=== PATIENT | female | born 1995 | race Caucasian/White ===

== ENCOUNTER 2025-01-08 10:57 | Observation (INO) ==
[2025-01-08] MEDS ORDERED: IOPAMIDOL 100 ML BOTTLE IV ONE (10:58)
[2025-01-08] MEDS: PANTOPRAZOLE 40 MG VIAL IV ONE (11:32)
[2025-01-08] MEDS: MAG HYDROX/AL HYDROX/SIMETH 30 ML ORAL.SUSP PO ONE (11:32)
[2025-01-08] MEDS: SUCRALFATE 1 GM TABLET PO ONE (11:39)
[2025-01-08] MEDS: SUCRALFATE 1 GM/10 ML ORAL.SUSP PO ONE (11:50)
[2025-01-08 12:39] LABS: Basophils # (Auto) 0.05 K/mcL (0.00-0.30); Basophils % (Auto) 0.6 % (0.0-2.0); Eosinophils # (Auto) 0.04 K/mcL (0.00-0.70); Eosinophils % (Auto) 0.4 % (0.0-7.0); Hematocrit 44.0 % (34.1-44.9); Hemoglobin 15.2 g/dL (11.2-15.7); Lymphocytes # (Auto) 1.45 K/mcL (1.50-4.80); Lymphocytes % (Auto) 16.1 % (15.5-49.0); Mean Corpuscular HGB Conc 34.5 g/dL (31.0-36.0); Monocytes # (Auto) 0.38 K/mcL (0.10-0.90); Monocytes % (Auto) 4.2 % (1.0-12.0); Neutrophils % (Auto) 78.4 % (38.0-78.0); Platelet Count 311 K/mcL (140-440); RBC 5.23 M/mcL (3.59-5.38); WBC 9.0 K/mcL (4.5-11.0)
[2025-01-08 12:47] LABS: Bilirubin,Urine Negative (Negative); Color,Urine YELLOW; Glucose,Urine (UA) Negative (Negative); Ketones,Urine Negative (Negative); Leukocyte Esterase,Urine Negative /uL (Negative); PH,Urine 6.0 (5.0-9.0); Protein,Urine Negative (Negative); Specific Gravity,Urine 1.006 (1.000-1.035); Urobilinogen,Urine 2.0 mg/dL
[2025-01-08 12:58] LABS: ALT/SGPT 269 U/L (<40); AST/SGOT 391 U/L (<32); Albumin 4.7 gm/dL (3.2-5.2); Albumin/Globulin Ratio 1.7 (1.0-2.3); Alkaline Phosphatase 291 U/L (39-117); Anion Gap 14.0 (8.0-16.0); Bilirubin,Total 0.8 mg/dL (0.1-1.0); Blood Urea Nitrogen 11 mg/dL (6-20); Calcium 10.0 mg/dL (8.6-10.4); Carbon Dioxide 26 mmol/L (22-30); Chloride 97 mmol/L (96-108); Globulin 2.8 gm/dL (2.2-3.7); Glucose 77 mg/dL (70-105); Potassium 3.6 mmol/L (3.3-5.1); Sodium 137 mmol/L (133-145)
[2025-01-08] MEDS: 0.9 % SODIUM CHLORIDE 1,000 ML IV ONE (13:33)
[2025-01-08] MEDS: PIPERACILLIN SODIUM/TAZOBACTAM 3.375 GM in DEXTROSE 5% IN WATER 50 ML IV ONE (16:25)
[2025-01-08] MEDS: HYDROmorphone 0.5 MG/0.5 ML SYRINGE IV ONE (16:50)
[2025-01-08] MEDS: NICOTINE 21 MG PATCH TOPICAL ONE (17:02)
[2025-01-08] MEDS: 0.9 % SODIUM CHLORIDE 1,000 ML IV SCH (17:24)
[2025-01-08] MEDS: PIPERACILLIN SODIUM/TAZOBACTAM 3.375 GM in DEXTROSE 5% IN WATER 100 ML IV SCH (17:25)
[2025-01-08] MEDS: PANTOPRAZOLE 40 MG VIAL IV SCH (17:34)
[2025-01-08 18:57] LABS: INR 1.0 (0.9-1.1); Prothrombin Time 14.0 sec (11.9-14.5)
[2025-01-08] MEDS: ACETAMINOPHEN 1,000 MG/100 ML BAG IV PRN (20:17)
[2025-01-09] MEDS: ONDANSETRON 4 MG/2 ML VIAL IV PRN (05:37)
[2025-01-09 06:18] LABS: Basophils # (Auto) 0.04 K/mcL (0.00-0.30); Basophils % (Auto) 1.2 % (0.0-2.0); Eosinophils # (Auto) 0.13 K/mcL (0.00-0.70); Eosinophils % (Auto) 4.0 % (0.0-7.0); Hematocrit 38.4 % (34.1-44.9); Hemoglobin 13.0 g/dL (11.2-15.7); Lymphocytes # (Auto) 1.33 K/mcL (1.50-4.80); Lymphocytes % (Auto) 41.2 % (15.5-49.0); Mean Corpuscular HGB Conc 33.9 g/dL (31.0-36.0); Monocytes # (Auto) 0.32 K/mcL (0.10-0.90); Monocytes % (Auto) 9.9 % (1.0-12.0); Neutrophils % (Auto) 43.4 % (38.0-78.0); Platelet Count 214 K/mcL (140-440); RBC 4.42 M/mcL (3.59-5.38); WBC 3.2 K/mcL (4.5-11.0)
[2025-01-09 06:31] LABS: ALT/SGPT 198 U/L (<40); AST/SGOT 103 U/L (<32); Albumin 3.9 gm/dL (3.2-5.2); Albumin/Globulin Ratio 1.7 (1.0-2.3); Alkaline Phosphatase 198 U/L (39-117); Anion Gap 8.0 (8.0-16.0); Bilirubin,Direct 0.2 mg/dL (<0.3); Bilirubin,Total 0.4 mg/dL (0.1-1.0); Blood Urea Nitrogen 7 mg/dL (6-20); Calcium 9.0 mg/dL (8.6-10.4); Carbon Dioxide 26 mmol/L (22-30); Chloride 105 mmol/L (96-108); Globulin 2.3 gm/dL (2.2-3.7); Glucose 85 mg/dL (70-105); Phosphorous 2.8 mg/dL (2.5-4.5); Potassium 4.5 mmol/L (3.3-5.1); Sodium 139 mmol/L (133-145); Triglycerides 63 mg/dL (<150); Uric Acid 2.5 mg/dL (2.5-8.0)
[2025-01-09] MEDS: fentaNYL 100 MCG/2 ML VIAL IV PRN ×2 (08:02→10:30)
[2025-01-09] MEDS ORDERED: fentaNYL 100 MCG/2 ML VIAL ONE (08:18)
[2025-01-09] MEDS ORDERED: MIDAZOLAM 2 MG/2 ML VIAL ONE (08:18)
[2025-01-09] MEDS ORDERED: PROPOFOL 200 MG/20 ML VIAL IV ONE (08:19)
[2025-01-09] MEDS ORDERED: DEXAMETHASONE 10 MG/ML VIAL ONE (08:21)
[2025-01-09] MEDS ORDERED: ONDANSETRON 4 MG/2 ML VIAL ONE (08:21)
[2025-01-09] MEDS ORDERED: ROCURONIUM 10 MG/ML ML IV ONE (08:21)
[2025-01-09] MEDS ORDERED: SUCCINYLCHOLINE 200 MG/10 ML VIAL IV ONE (08:21)
[2025-01-09] MEDS ORDERED: GLYCOPYRROLATE 0.2 MG/ML VIAL IV ONE (08:21)
[2025-01-09] MEDS ORDERED: MAGNESIUM SULFATE 2 GM/50 ML BAG IV ONE (08:22)
[2025-01-09] MEDS ORDERED: FAMOTIDINE/PF 20 MG/2 ML VIAL IV ONE (08:22)
[2025-01-09] MEDS ORDERED: hydrALAZINE 20 MG/ML VIAL ONE (09:14)
[2025-01-09] MEDS ORDERED: HYDROmorphone 0.5 MG/0.5 ML SYRINGE ONE (09:15)
[2025-01-09] MEDS ORDERED: NALOXONE HCL 0.4 MG/ML VIAL IV PRN ×2 (09:17→09:20)
[2025-01-09] MEDS ORDERED: IPRATROPIUM/ALBUTEROL 3 ML AMPUL.NEB NEB PRN ×2 (09:17→09:20)
[2025-01-09] MEDS ORDERED: BENZOCAINE/MENTHOL 1 LOZENGE PO PRN ×2 (09:17→09:20)
[2025-01-09] MEDS ORDERED: METHOCARBAMOL 1,000 MG/10 ML VIAL IV PRN ×2 (09:17→09:20)
[2025-01-09] MEDS ORDERED: LACTATED RINGERS 250 ML IV PRN (09:17)
[2025-01-09] MEDS ORDERED: FLUMAZENIL 0.1 MG/ML ML IV PRN ×2 (09:17→09:20)
[2025-01-09] MEDS ORDERED: HYDROmorphone 0.5 MG/0.5 ML SYRINGE IV PRN (09:20)
[2025-01-09] MEDS ORDERED: ONDANSETRON 4 MG/2 ML VIAL IV PRN (09:20)
[2025-01-09] MEDS ORDERED: KETOROLAC 30 MG/ML VIAL ONE (09:21)
[2025-01-09] MEDS ORDERED: METOCLOPRAMIDE 10 MG/2 ML VIAL ONE (09:21)
[2025-01-09] MEDS ORDERED: SUGAMMADEX SODIUM 200 MG/2 ML VIAL IV ONE (09:23)
[2025-01-09] MEDS ORDERED: ACETAMINOPHEN 1,000 MG/100 ML BAG IV SCH (10:15)
[2025-01-09] MEDS: 0.9 % SODIUM CHLORIDE 1,000 ML IV SCH (10:33)
[2025-01-09] MEDS: LACTATED RINGERS 1,000 ML IV SCH (11:21)
[2025-01-09] MEDS: HYDROmorphone 0.5 MG/0.5 ML SYRINGE IV PRN (12:15)
[2025-01-09] MEDS: 0.9 % SODIUM CHLORIDE 10 ML SYRINGE IV SCH (13:34)
[2025-01-09] MEDS: NICOTINE 21 MG PATCH TOPICAL SCH (16:36)
[2025-01-10 06:45] LABS: ALT/SGPT 143 U/L (<40); AST/SGOT 59 U/L (<32); Albumin 3.6 gm/dL (3.2-5.2); Albumin/Globulin Ratio 1.7 (1.0-2.3); Alkaline Phosphatase 142 U/L (39-117); Anion Gap 9.0 (8.0-16.0); Bilirubin,Direct < 0.2 mg/dL (0-0.3); Bilirubin,Total 0.4 mg/dL (0.1-1.0); Blood Urea Nitrogen 4 mg/dL (6-20); Calcium 8.5 mg/dL (8.6-10.4); Carbon Dioxide 22 mmol/L (22-30); Chloride 104 mmol/L (96-108); Globulin 2.1 gm/dL (2.2-3.7); Glucose 109 mg/dL (70-105); Phosphorous 3.0 mg/dL (2.5-4.5); Potassium 4.1 mmol/L (3.3-5.1); Sodium 135 mmol/L (133-145); Triglycerides 67 mg/dL (<150); Uric Acid 1.5 mg/dL (2.5-8.0)
[2025-01-10 18:42] VITALS: TEMP 98.1; O2SAT 98
== END 2025-01-10 19:05 | disposition home or self-care (01) ==
LOC: MEDSUR 10:57 → ED 10:57 → MEDSUR 17:26
PROVIDERS: ADMIT Family Medicine Adult Medicine; ATTEND Family Medicine Adult Medicine